=== PATIENT | male | born 1990 | race Caucasian/White ===

== ENCOUNTER 2018-10-10 08:51 | Emergency (ER) | payer BC ==
[2018-10-10 09:07] VITALS: BP 137/92
--- NOTE | 2018-10-10 09:35 | UC ---
Ear Complaint HPI - HPI Summary HPI Summary: 28-year-old male comes in with a chief complaint of left ear pressure. It started 2 weeks ago while he was scuba diving. Pressure was worse when he was diving a deeper depths and less at shallower depths. He has had upper respiratory tract infection symptoms for the last several days. He's had some dark-colored rhinorrhea this morning. Mild sore throat. Also last night noticed a rash on his feet. It itches. Slightly raised erythematous bumps. No known contact. No new clothes or detergents. Rashes stopped that in lower legs. - History of Current Complaint Chief Complaint: UCEar Stated Complaint: EAR PAIN Time Seen by Provider: 10/10/18 09:11 Pain Intensity: 0 - Allergies/Home Medications Allergies/Adverse Reactions: Allergies Allergy/AdvReac Type Severity Reaction Status Date / Time No Known Allergies Allergy Verified 03/10/15 07:06 Home Medications: Home Medications Multivitamin [Multiple Vitamins] 1 tab PO DAILY 10/10/18 [History Confirmed ] PMH/Surg Hx/FS Hx/Imm Hx Previously Healthy: Yes - Surgical History Surgical History: Yes Surgery Procedure, Year, and Place: KNEE SURGERY, APPENDECTOMY, wisdom teeth - Family History Known Family History: Positive: Non-Contributory - Social History Alcohol Use: Weekly Substance Use Type: Marijuana Substance Use Comment - Amount & Last Used: yesterday cocaine 6mths ago Smoking Status (MU): Light Every Day Tobacco Smoker Type: Cigarettes Have You Smoked in the Last Year: Yes Household Exposure Type: Cigarettes Review of Systems All Other Systems Reviewed And Are Negative: Yes Constitutional: Positive: Negative Skin: Positive: Rash Eyes: Positive: Negative ENT: Positive: Sore Throat, Ear Ache, Nasal Discharge, Sinus Congestion Respiratory: Positive: Negative Cardiovascular: Positive: Negative Gastrointestinal: Positive: Negative Motor: Positive: Negative Neurovascular: Positive: Negative Musculoskeletal: Positive: Negative Neurological: Positive: Negative Psychological: Positive: Negative Is Patient Immunocompromised?: No Physical Exam Triage Information Reviewed: Yes Appearance: Well-Appearing, No Pain Distress, Well-Nourished Vital Signs: Initial Vital Signs Temp 97.9 F 10/10/18 09:00 Pulse 68 10/10/18 09:00 Resp 16 10/10/18 09:00 BP 137/92 10/10/18 09:00 Pulse Ox 98 10/10/18 09:00 Vital Signs Reviewed: Yes Eye Exam: Normal Eyes: Positive: Conjunctiva Clear ENT: Positive: Pharyngeal erythema, Nasal congestion, Nasal drainage, TM bulging - LEFT, TM dull - LEFT WITH BUBBLES Neck exam: Normal Neck: Positive: Supple Respiratory: Positive: Lungs clear, Normal breath sounds, No respiratory distress Cardiovascular: Positive: RRR Musculoskeletal Exam: Normal Musculoskeletal: Positive: Strength Intact, ROM Intact Neurological Exam: Normal Neurological: Positive: Alert, Muscle Tone Normal Psychological Exam: Normal Psychological: Positive: Age Appropriate Behavior Skin: Positive: Other - On both feet and lower legs patient has scattered approximate 4 mm in diameter raised erythematous blanching. No streaking not hot to touch there is no drainage. Ear Complaint Course/Dx - Course Course Of Treatment: Due to the duration of symptoms due to the duration of symptoms of the left ear, will treat with Augmentin. Also discussed symptomatic treatment. Overall if he does not improve we talked about having an ENT follow-up. I'm not sure about the cause of the rash. Overall it appears to be a contact dermatitis. Patient will do symptomatic treatment and seek reevaluation if worsens. - Differential Dx/Diagnosis Provider Diagnosis: Left serous otitis media, Upper respiratory infection Discharge - Sign-Out/Discharge Documenting (check all that apply): Patient Departure All imaging exams completed and their final reports reviewed: No Studies - Discharge Plan Condition: Stable Disposition: HOME Prescriptions: Amoxicillin/Clavulanate TAB* [Augmentin TAB 875*] 875 mg PO BID #20 tab Patient Education Materials: Upper Respiratory Infection (ED), Acute Rash (ED) , Serous Otitis Media (ED) Referrals: No Primary Care Phys,NOPCP [Primary Care Provider] - [facility] [place] [facility]FERR[facility] [Outside] Additional Instructions: FOLLOW UP WITH YOUR DOCTOR OR ENT IF NOT COMPLETELY IMPROVED. YOU CAN TRY A TRIAL OF A DECONGESTANT SUCH SUDAFED. GET RECHECKED FOR ANY WORSENING OF YOUR CONDITION OR QUESTIONS OR CONCERNS. - Billing Disposition and Condition Condition: STABLE Disposition: Home
== END 2018-10-10 09:40 | disposition home or self-care (01) ==
LOC: UCEAST 08:51
DX: H65.92 Unspecified nonsuppurative otitis media, left ear (principal); J06.9 Acute upper respiratory infection, unspecified; R21 Rash and other nonspecific skin eruption; F17.210 Nicotine dependence, cigarettes, uncomplicated
CPT/HCPCS: 99202; G0463